=== PATIENT | female | born 1985 | race Caucasian/White ===

== ENCOUNTER 2019-12-21 03:30 | Inpatient (IN) ==
[2019-12-21] MEDS ORDERED: Ondansetron 4 MG/2 ML VIAL IVP PRN (04:04)
[2019-12-21] MEDS ORDERED: Famotidine 20 MG/2 ML VIAL IVP PRN (04:04)
[2019-12-21] MEDS ORDERED: Lidocaine 1% 20 ML MDV INFILT PRN (04:04)
[2019-12-21] MEDS ORDERED: Naloxone 0.4 MG/ML INJ IVP PRN (04:04)
[2019-12-21] MEDS ORDERED: Metoclopramide 10 MG/2 ML VIAL IVP PRN (04:04)
[2019-12-21 04:32] LABS: Basophils % 0.3 %; Eosinophils # 0.1 K/mcL (0.0-0.6); Eosinophils % 0.8 %; Hemoglobin 11.9 g/dL (11.5-15.4); Immature Granulocytes % 0.9 % (0-4); Lymphocytes # 2.4 K/mcL (0.6-4.6); Lymphocytes % 25.7 %; Mean Corpuscular HGB Conc 33.1 g/dL (31.6-35.5); Mean Corpuscular Volume 87.6 fL (83.0-100.0); Mean Platelet Volume 11.1 fL (9.4-12.4); Monocytes # 0.6 K/mcL (0.0-1.3); Neutrophils # 6.1 K/mcL (1.6-8.9); Platelet Count 140 K/mcL (140-400); Red Blood Count 4.11 M/mcL (3.82-4.97); Red Cell Distribution Width 14.2 % (11.5-14.5); Segmented Neutrophils % 66.3 %; White Blood Count 9.2 K/mcL (4.3-11.1)
[2019-12-21 04:41] LABS: Amphetamine Screen,Urine Negative ng/mL (Cutoff=1000); Barbiturate Screen,Urine Negative ng/mL (Cutoff=200); Benzodiazepines Screen,Urine Negative ng/mL (Cutoff=200); Cannabinoid Screen,Urine Negative ng/mL (Cutoff = 50); Cocaine Screen,Urine Negative ng/mL (Cutoff= 300); Opiate Screen,Urine Negative ng/mL (Cutoff=300); Phencyclidine Screen,Urine Negative ng/mL (Cutoff=25)
[2019-12-21] MEDS: miSOPROStoL 25 MCG TABLET PO PRN ×2 (05:23→09:32)
[2019-12-21] MEDS: *HR* FentaNYL (PF) 100 MCG/2 ML VIAL IVP PRN ×2 (08:57→10:30)
[2019-12-21] MEDS ORDERED: EPHEDrine 50 MG/ML VIAL IVP PRN (12:46)
[2019-12-21] MEDS ORDERED: *HR* FentaNYL (PF) 100 MCG/2 ML VIAL EP ONE (12:46)
[2019-12-21] MEDS: Ringers Solution, Lactated 1,000 ML IVC SCH ×2 (12:58→14:47)
[2019-12-21] MEDS ORDERED: Ropivacaine/PF 0.2% 20 ML VIAL ONE (13:27)
[2019-12-21] MEDS ORDERED: *HR* FentaNYL (PF) 100 MCG/2 ML VIAL ONE (13:27)
[2019-12-21] MEDS: Epidural Premix (fent/bupiv) 110 ML EP SCH ×2 (13:50→20:46)
[2019-12-21] MEDS ORDERED: Oxytocin 20 units/ LR 1000 mL 20 UNIT/1,000 ML BAG IVC SCH (14:30)
[2019-12-21] MEDS ORDERED: Oxytocin 20 units/ LR 1000 mL 20 UNIT/1,000 ML BAG IVC ONE (14:31)
[2019-12-22] MEDS ORDERED: *HR* FentaNYL (PF) 100 MCG/2 ML VIAL ONE (02:17)
[2019-12-22] MEDS: Epidural Premix (fent/bupiv) 110 ML EP SCH (03:00)
[2019-12-22] MEDS ORDERED: Rho Immune Globulin 1,500 UNIT SYRINGE IM PRN (08:10)
[2019-12-22] MEDS ORDERED: Measles/Mumps/Rubella Vacc 0.5 ML VIAL SQ PRN (08:10)
[2019-12-22] MEDS ORDERED: Benzocaine/Menthol 56 GM AEROSOL SPRAY TP PRN (08:10)
[2019-12-22] MEDS ORDERED: Lanolin 7 G OINT...G. TP PRN (08:10)
[2019-12-22] MEDS ORDERED: Oxytocin 20 units/ LR 1000 mL 20 UNIT/1,000 ML BAG IVC ONE (08:10)
[2019-12-22] MEDS ORDERED: Oxytocin 20 units/ LR 1000 mL 20 UNIT/1,000 ML BAG IVC SCH (08:10)
[2019-12-22] MEDS: Ibuprofen 600 MG TABLET PO PRN ×3 (08:18→23:35)
[2019-12-22] MEDS: Prenatal Vit/FA 1 EACH TABLET PO SCH (08:19)
[2019-12-22] MEDS ORDERED: NON-FORMULARY MEDICATION 1 EACH EACH (Prenatal Vits96/Iron Fum/Folic [Prenatal Tablet] 1 E PO SCH (09:00)
[2019-12-22] MEDS: Acetaminophen 325 MG TABLET PO PRN ×2 (11:40→19:45)
[2019-12-22] MEDS ORDERED: Methylergonovine 0.2 MG/ML AMPUL IM ONE (15:09)
[2019-12-23 02:12] LABS: Basophils % 0.3 %; Eosinophils # 0.1 K/mcL (0.0-0.6); Eosinophils % 0.7 %; Hematocrit 29.5 % (35.3-44.9); Lymphocytes # 2.4 K/mcL (0.6-4.6); Lymphocytes % 19.5 %; Mean Corpuscular HGB Conc 32.5 g/dL (31.6-35.5); Mean Corpuscular Hemoglobin 28.9 pg (28.0-33.3); Mean Corpuscular Volume 88.9 fL (83.0-100.0); Mean Platelet Volume 11.1 fL (9.4-12.4); Monocytes # 0.8 K/mcL (0.0-1.3); Monocytes % 6.7 %; Neutrophils # 8.9 K/mcL (1.6-8.9); Platelet Count 125 K/mcL (140-400); Red Blood Count 3.32 M/mcL (3.82-4.97); Red Cell Distribution Width 14.5 % (11.5-14.5); Segmented Neutrophils % 71.8 %; White Blood Count 12.4 K/mcL (4.3-11.1)
[2019-12-23 02:13] LABS: Hemoglobin 9.6 g/dL (11.5-15.4)
[2019-12-23] MEDS: Ibuprofen 600 MG TABLET PO PRN (06:17)
[2019-12-23 08:20] VITALS: BP 117/75
[2019-12-23] MEDS: Prenatal Vit/FA 1 EACH TABLET PO SCH (08:37)
[2019-12-23] MEDS: Acetaminophen 325 MG TABLET PO PRN (08:57)
== END 2019-12-23 15:10 | disposition home or self-care (01) | DRG 806 ==
LOC: 1NENULAB 04:02 → 1NENUOBS 12-22 08:07
PROVIDERS: ADMIT Student in an Organized Health Care Education/Training Program; ATTEND Student in an Organized Health Care Education/Training Program